=== PATIENT | male | born 1990 | race Caucasian/White ===

== ENCOUNTER 2018-04-04 19:15 | Emergency (ER) | payer BC, SELFPAY ==
[2018-04-04 19:22] VITALS: BP 127/91; PULSE 74; RESP 16; TEMP 36.6; O2SAT 100
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
[2018-04-04] MEDS: Lidocaine 2% Multi-Dose 50 ML VIAL (20:33)
== END 2018-04-04 20:39 | disposition home or self-care (01) ==
PROVIDERS: Emergency Provider Emergency Medicine; PCP Family Medicine
DX: S61.212A Laceration without foreign body of right middle finger without damage to nail, initial encounter (principal); W26.8XXA Contact with other sharp object(s), not elsewhere classified, initial encounter; Y93.E9 Activity, other interior property and clothing maintenance
CPT/HCPCS: 12002; 90471

== ENCOUNTER 2023-04-02 09:57 | Emergency (ER) | payer BC, SELFPAY ==
[2023-04-02 10:05] VITALS: BP 101/65; PULSE 65; RESP 20; TEMP 36.8; O2SAT 99
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
--- NOTE | 2023-04-03 11:22 | NUR.NOTE ---
Nursing Note: Accessed pt chart to determine work release time off/return
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
== END 2023-04-02 13:14 | disposition home or self-care (01) ==
PROVIDERS: Emergency Provider Physician Assistant; PCP Family Medicine
DX: T22.211A Burn of second degree of right forearm, initial encounter (principal); T22.231A Burn of second degree of right upper arm, initial encounter; T31.0 Burns involving less than 10% of body surface; X03.0XXA Exposure to flames in controlled fire, not in building or structure, initial encounter; Y93.89 Activity, other specified
CPT/HCPCS: 99282

== ENCOUNTER 2024-04-25 00:44 | Outpatient (CLI) | payer BC, SELFPAY ==
--- NOTE | 2024-04-25 | DI.US_ITS ---
Exam(s) US BREAST RT LIMITED MG MAMMO DIAGNOSTIC BI US BREAST LT LIMITED EXAM: MG MAMMO DIAGNOSTIC BI CLINICAL HISTORY: MATERNAL AUNT H/O BREAST CANCER, TWO RT SIDED NODULAR LUMPS RT. COMPARISON: US US BREAST RT LIMITED from 04/25/2024 US US BREAST LT LIMITED from 04/25/2024 TECHNIQUE: Craniocaudal and mediolateral oblique Full Field Digital Mammography views of both breast s with Computer Aided Diagnosis followed by Tomosynthesis and bilateral breast ultrasound. FINDINGS: Mammography/Tomosynthesis: Masses/Architectural Distortion: None seen. Mild bilateral gynecomastia. Microcalcifications: No suspicious pleomorphic-type are seen. Skin Thickening/Nipple Retraction: None. Bilateral breast US: Echotexture: Mild bilateral gynecomastia. Shadowing: No suspicious foci. Cyst: None. Solid lesions: No suspicious masses. The palpable abnormalities in the right breast correspond to two adjacent ovoid smoothly marginated lesions with fatty echogenicity consistent with lipomas. Maximum dimension 1 cm each. Ductal dilation: None. IMPRESSION: 1. No evidence of malignancy is noted. Palpable abnormalities are consistent with small lipomas in the subcutaneous fat. Mild bilateral gynecomastia. BI-RADS Category 2 - Benign Findings Breast Density - Category B - Scattered areas of fibroglandular density A negative radiographic report should not delay biopsy if a dominant or clinically suspicious mass is present. Up to ten percent of cancers are not identified on mammography. A negative report may reinforce clinical impression. Adenosis and dense breasts may obscure an underlying neoplasm. False positive reports average 6 to 10%.
== END 2024-04-25 01:04 ==
LOC: DI 00:44
PROVIDERS: PCP Family Medicine; Visit Provider Student in an Organized Health Care Education/Training Program
DX: Z12.31 Encounter for screening mammogram for malignant neoplasm of breast (principal); Z80.3 Family history of malignant neoplasm of breast; N62 Hypertrophy of breast
CPT/HCPCS: 76642; 77062; 77066; G0279

== ENCOUNTER 2025-04-09 17:04 | Outpatient (REF) | payer BC, SELFPAY ==
[2025-04-09 19:13] LABS: Hemoglobin A1C 5.6 % (<5.7)
[2025-04-09 19:29] LABS: Calculated LDL 132 mg/dL (<100); Cholesterol 225 mg/dL (<200); HDL Cholesterol 82 mg/dL (>or=40); Triglyceride 55 mg/dL (<150)
== END 2025-04-09 17:05 | disposition home or self-care (01) ==
LOC: NCHCN 17:04
PROVIDERS: PCP Student in an Organized Health Care Education/Training Program; Visit Provider Student in an Organized Health Care Education/Training Program
DX: Z13.220 Encounter for screening for lipoid disorders (principal); Z13.1 Encounter for screening for diabetes mellitus
CPT/HCPCS: 80061; 83036